=== PATIENT | female | born 1980 | race Caucasian/White ===

== ENCOUNTER 2024-02-29 05:47 | Day surgery (SDC) | payer BC ==
[2024-02-29] MEDS ORDERED: fentaNYL 100 MCG/2 ML SDV IV ONE (05:48)
[2024-02-29] MEDS ORDERED: Midazolam 1 MG/ML 2 ML SDV IV ONE (05:48)
[2024-02-29] MEDS ORDERED: Midazolam 1 MG/ML 2 ML SDV ONE (06:05)
[2024-02-29] MEDS ORDERED: fentaNYL 100 MCG/2 ML SDV ONE (06:05)
[2024-02-29] MEDS: Dextrose 5%-0.45% NaCl 1,000 ML IV SCH (06:07)
[2024-02-29] MEDS: fentaNYL 100 MCG/2 ML SDV IV ONE ×3 (07:12→07:27)
[2024-02-29] MEDS: Midazolam 1 MG/ML 2 ML SDV IV ONE ×6 (07:13→07:23)
== END 2024-02-29 08:50 | disposition home or self-care (01) ==
LOC: DL.ENDO 05:47
PROVIDERS: ATTEND Internal Medicine Gastroenterology
DX: Z12.11 Encounter for screening for malignant neoplasm of colon (principal); D12.2 Benign neoplasm of ascending colon
CPT/HCPCS: J2250; J3010; J7799